=== PATIENT | male | born 1985 | race Caucasian/White ===

== ENCOUNTER 2020-04-02 18:13 | Emergency (ER) | payer OTHER, MEDICAID ==
[~2020-04-02] VITALS: Ht 167.6 cm; Wt 90.7 kg
[2020-04-02 18:18] VITALS: Ht 167.6 cm; Wt 90.7 kg
[2020-04-02 19:34] LABS: AMPHETAMINE QUAL UR NONE DETECTED (See below)
[2020-04-02 19:36] LABS: BASOPHIL % 0.3 % (0-2); PLATELET COUNT 200 x10^3mcL (130-400); RED CELL DISTRIBUTION WIDTH 14.4 % (11.5-14.5)
[2020-04-02 19:38] LABS: CALCIUM 8.2 mg/dL (8.5-10.1); CHLORIDE SERUM 103 mmol/L (98-107); CREATININE SERUM 0.9 mg/dL (0.7-1.3); GFR1 > 60 mL/min; GLUCOSE SERUM 110 mg/dL (74-106); POTASSIUM SERUM 3.8 mmol/L (3.5-5.1); SODIUM SERUM 135 mmol/L (136-145)
[2020-04-02 19:46] LABS: UA SPECIFIC GRAVITY <=1.005 (1.005-1.035); microscopic required? YES; urine erythrocyte TRACE (NEGATIVE)
[2020-04-02 19:49] LABS: ALKALINE PHOSPHATASE 79 U/L (46-116); ALT/SGPT 50 U/L (16-63); AST/SGOT 22 U/L (15-37); BILIRUBIN TOTAL 0.3 mg/dL (0.20-1.00); C REACTIVE PROTEIN 1.5 mg/dL (<=0.9); LIPASE 147 IU/L (73-393); TOTAL PROTEIN, SERUM 6.4 g/dL (6.4-8.2)
[2020-04-02 19:51] LABS: ALBUMIN 3.2 g/dL (3.4-5.0); T3 TOTAL 1.37 ng/mL
[2020-04-02 19:53] LABS: FREE T4 0.97 ng/dL (0.76-1.46); T4(THYROXINE) 5.8 ug/dL (4.7-13.3)
[2020-04-02 20:13] LABS: CK-MB < 0.5 ng/mL (0-3.6); CREATINE KINASE 195 U/L (39-308)
[2020-04-02 20:31] LABS: ERYTHROCYTE SED RATE 13 mm/hr (0-15)
[2020-04-02 22:57] VITALS: BP 142/94
== END 2020-04-02 22:57 ==
LOC: ED 18:13
PROVIDERS: Specialist
DX: F25.0 Schizoaffective disorder, bipolar type (principal); F41.9 Anxiety disorder, unspecified; F17.210 Nicotine dependence, cigarettes, uncomplicated; F15.10 Other stimulant abuse, uncomplicated; F19.10 Other psychoactive substance abuse, uncomplicated
CPT/HCPCS: 36600; 84439; G0480; J2060; J2405; J7030; Q0092